=== PATIENT | male | born 1960 | race Caucasian/White ===

== ENCOUNTER 2017-10-30 16:50 | Inpatient (IN) | payer SELFPAY ==
[2017-10-30] MEDS ORDERED: ALBUTEROL 2.5 MG/3 ML NEB SOL IH PRN (18:11)
[2017-10-30 18:13] LABS: Absolute Lymphocytes (CBC) 0.4 K/uL (0.7-4.9); Absolute Monocytes 0.5 K/uL (0.1-1.3); Absolute Neutrophil 11.8 K/uL (1.8-8.0); Basophils % 0.2 % (0-1.3); Hematocrit 34.3 % (39.6-49.0); Lymphocytes % 3.5 % (15.3-44.8); MCH 33.6 pg (27.0-35.0); MCV 93.4 fL (80-100); MPV 9.6 fL (7.6-11.3); Monocytes % 3.9 % (3.3-12.3); RBC Red Blood Cell Count 3.67 M/uL (4.33-5.43)
[2017-10-30] MEDS: NA CHLORIDE 0.9% 1,000 ML IV SCH (18:58)
[2017-10-30] MEDS ORDERED: POLYETHYL GLY 3350 17 GM/DOSE PO PRN (19:00)
[2017-10-30] MEDS ORDERED: ONDANSETRON 4 MG (ODT) TAB PO PRN (19:00)
[2017-10-30] MEDS ORDERED: LOPERAMIDE HCL 2 MG CAPSULE PO PRN (19:00)
[2017-10-30] MEDS ORDERED: ONDANSETRON 4 MG/2 ML VIAL IV PRN (19:00)
[2017-10-30] MEDS ORDERED: DIPHENHYDRAMINE 25 MG TAB/CAP PO PRN (19:00)
[2017-10-30 19:04] LABS: Potassium 3.5 mEq/L (3.6-5.0)
[2017-10-30] MEDS: IPRATROPIUM BROM 0.5MG/2.5ML IH SCH (19:08)
[2017-10-30] MEDS: ALBUTEROL 2.5 MG/3 ML NEB SOL IH SCH (19:16)
[2017-10-30] MEDS: ENOXAPARIN 30 MG/0.3 ML SQ SCH (20:58)
[2017-10-30] MEDS: TRAMADOL HCL 50 MG TAB PO PRN (20:59)
[2017-10-30] MEDS: LORazepam 2 MG/ML VIAL IV SCH (20:59)
[2017-10-30] MEDS: FOLIC ACID 1 MG TABLET PO SCH (21:00)
[2017-10-30] MEDS ORDERED: PNEUMOCOCCAL VACCINE 0.5 ML IMVAC ONE (21:00)
[2017-10-30] MEDS: THIAMINE 200 MG/2 ML INJ IVP SCH (21:05)
--- NOTE | 2017-10-30 22:37 | EKG ---
Test Date: 2017-10-30 Test Time: 17:44:53 Clerk Rating: JEANNIE MEASUREMENT RESULTS: Intervals: Rate: 99 OK: 146 QRSD: 90 QT: 350 QTc: 449 Luke: P: 36 OK: 146 QRS: 73 T: 23 INTERPRETIVE STATEMENTS: Normal sinus rhythm Normal ECG No previous ECG available for comparison Electronically Signed On 10-30-17 22:37:41 CDT by Bobby Romo
[2017-10-31] MEDS: ACETAMINOPHEN 325 MG TABLET PO PRN ×2 (00:20→20:54)
[2017-10-31] MEDS: LORazepam 2 MG/ML VIAL IV SCH ×7 (01:00→20:55)
[2017-10-31] MEDS: IPRATROPIUM BROM 0.5MG/2.5ML IH SCH ×4 (01:06→19:28)
[2017-10-31] MEDS: ALBUTEROL 2.5 MG/3 ML NEB SOL IH SCH ×4 (01:17→19:28)
[2017-10-31] MEDS: NA CHLORIDE 0.9% 1,000 ML IV SCH ×3 (02:43→17:37)
[2017-10-31 03:12] LABS: Urine Appearance CLOUDY; Urine Bilirubin NEGATIVE (NEG); Urine Blood 2+ (NEG); Urine Color YELLOW; Urine Glucose NEGATIVE (NEG); Urine Protein 2+ (NEG); Urine Specific Gravity 1.015 (1.005-1.030); Urine pH 5.5 (5.0-7.0)
[2017-10-31 03:15] LABS: Urine Microscopic Reflex ORDER UMIC
[2017-10-31 03:24] LABS: Urine Amorphous Sediment 2+ /HPF (NONE SEEN); Urine Bacteria <20 /HPF (NONE SEEN); Urine Culture Reflex Order NOT NEEDED
[2017-10-31 05:04] LABS: Absolute Lymphocytes (CBC) 0.6 K/uL (0.7-4.9); Absolute Monocytes 0.5 K/uL (0.1-1.3); Absolute Neutrophil 7.4 K/uL (1.8-8.0); Basophils % 0.3 % (0-1.3); Hematocrit 29.9 % (39.6-49.0); Lymphocytes % 7.5 % (15.3-44.8); MCH 33.1 pg (27.0-35.0); MCV 93.7 fL (80-100); MPV 8.7 fL (7.6-11.3); Monocytes % 6.1 % (3.3-12.3); RBC Red Blood Cell Count 3.19 M/uL (4.33-5.43)
[2017-10-31 05:21] LABS: Magnesium 1.6 mg/dL (1.8-2.5)
[2017-10-31 05:25] LABS: Blood Morphology Comment NOT SEEN (NOT SEEN); Platelet Estimate ADEQ; Urine White Blood Cell Casts OK
[2017-10-31] MEDS ORDERED: POTASSIUM 25 MEQ EFFERV TAB PO ONE (05:41)
[2017-10-31] MEDS ORDERED: MAGNESIUM SULFATE 1 gm IVPB 1 GM/100 ML BAG IV ONE (05:42)
[2017-10-31] MEDS ORDERED: NA CHLORIDE 0.9% 1,000 ML IV SCH (07:00)
--- NOTE | 2017-10-31 08:18 | RAD REPORT ---
EXAM DESCRIPTION: RAD - Chest Pa And Lat (2 Views) - 10/31/2017 6:45 am CLINICAL HISTORY: Dehydration, shortness of breath, acute renal failure COMPARISON: October 30 TECHNIQUE: PA and lateral views of the chest were obtained. FINDINGS: The lungs are normal volume. Interstitial markings remain prominent. No vascular engorgeme nt. Heart size is normal and stable. No pleural effusion or pneumothorax seen. No acute bony findi ng noted. No aortic abnormality. IMPRESSION: Baseline chronic interstitial lung disease is noted and stable. No new or progressive cardiopulmonary finding.
--- NOTE | 2017-10-31 08:23 | RAD REPORT ---
EXAM DESCRIPTION: US - Abdomen Exam Complete - 10/31/2017 7:54 am CLINICAL HISTORY: Abdominal pain COMPARISON: CT imaging August 2017 FINDINGS: Gallbladder size is normal on this examination. No gallstone could be confirmed and no joe surable quantity of sludge. No wall thickening, mass or other acute gallbladder or pericholecystic fi nding. Common bile duct is normal with no common duct stone identified. Liver has a nodular contour and coarsened echogenicity. Is can be seen with diffuse hepatic parenchym al disease as well as fatty infiltration. At sonography no correlate could be seen for the increased attenuation in the anterior superior right lobe. No splenomegaly or focal splenic finding. The pancreas is grossly normal but partially obscured. No hydronephrosis or suspicious mass in either kidney. Cortical thickness and echogenicity are normal . Right kidney is a 12.0 x 5.9 x 5.6 cm. Left kidney is 11.6 x 6.1 x 6.3 cm. Aorta is normal is size. No ascites or bulky lymphadenopathy. IMPRESSION: No gallbladder or biliary tree abnormality identifiable on this study. Coarsened liver echogenicity and a slightly nodular capsular contour. This could be early cirrhosis o r nonspecific diffuse hepatic parenchymal disease. No sonographic correlate for the focal area of subtle increased liver attenuation seen on the CT stud y. This can be re-evaluated with CT or MRI imaging in 3-4 months. Probability of long-term significan ce is felt to be low. No acute renal finding. Pancreas is grossly normal but partially obscured. No suspicious pancreatic finding on an a pleural [address] study.
[2017-10-31] MEDS: ENOXAPARIN 30 MG/0.3 ML SQ SCH (09:05)
[2017-10-31] MEDS: THIAMINE 200 MG/2 ML INJ IVP SCH (09:05)
[2017-10-31] MEDS: FOLIC ACID 1 MG TABLET PO SCH (09:06)
[2017-10-31 11:10] LABS: Potassium 3.7 mEq/L (3.6-5.0)
[2017-10-31 11:15] LABS: A1c Component 0.43 mg/dL; Hemoglobin A1c 5.3 % (4-6.0)
[2017-10-31 11:19] LABS: Alcohol Serum/Plasma < 10 mg/dl
[2017-10-31 11:53] LABS: CKMB Creatine Kinase MB 4.7 ng/ml (0.3-4.0); Thyroid Stimulating Hormone 1.16 uIU/mL (0.34-5.60)
[2017-10-31 12:19] LABS: C-Reactive Protein 222.7 mg/L (<10.0)
[2017-10-31 19:36] LABS: Albumin 2.4 g/dL (3.2-5.5); Bilirubin Total 0.7 mg/dL (0.3-1.2); Protein, Total 5.3 g/dL (6.0-8.3)
--- NOTE | 2017-10-31 21:38 | P.PN ---
Subjective Date of Service: 10/31/17 Chief Complaint: BETTER TODAY THAN YESTERDAY Subjective: Improving HE IS BETTER, STILL SHAKY, BUT NOT WEAK, FEVER HAS IMPROVED. Review of Systems 10-point ROS is otherwise unremarkable General: Weakness, Malaise Neurological: Weakness, Other (COARSE TREMORS) Physical Examination - Vital Signs Temperature: 99.9 F Blood Pressure: 166/84 Pulse: 102 Respirations: 20 Pulse Ox (%): 99 - Physical Exam General: Alert, Mild distress, Other (TREMORS) HEENT: Atraumatic, PERRLA, EOMI Neck: Supple, JVD not distended Respiratory: Clear to auscultation bilaterally, Normal air movement Cardiovascular: Regular rate/rhythm, Normal S1 S2 Gastrointestinal: Normal bowel sounds, No tenderness Musculoskeletal: No tenderness Integumentary: No rashes Neurological: Normal speech, Normal tone, Normal affect Lymphatics: No axilla or inguinal lymphadenopathy - Studies Laboratory Data (last 24 hrs) 10/31/17 18:37: Sodium 120 L, Potassium 4.0, BUN 49 H, Creatinine 2.70 H, Glucose 108, Total Bilirubin 0.7, AST 23, ALT 12, Alkaline Phosphatase 63 10/31/17 11:54: Potassium 3.8 10/31/17 10:09: Troponin I < 0.03 10/31/17 10:00: Sodium 121 L, Potassium 3.7, BUN 52 H, Creatinine 2.77 H, Glucose 107 10/31/17 04:39: Sodium 120 L, Potassium 3.0 L, BUN 50 H, Creatinine 3.00 H, Glucose 125 H, Magnesium 1.6 L 10/31/17 04:39: WBC 8.6 D, Hgb 10.5 L, Hct 29.9 L, Plt Count 147 L D Medications List Reviewed: Yes Assessment And Plan - Current Problems (Diagnosis) (1) Positive blood culture Current Visit: Yes Status: Acute Plan: FROM UTI , PYELONEPHRITIS CS PENDING CIPRO SHOULD WORK FOR PYELONEPHRITIS. (2) Cirrhosis Current Visit: Yes Status: Chronic Plan: HEAVY ALCOHOL USE JUST QUIT I HAD ADVISED MANY TIMES BEFORE THIAMINE, FOLATE (3) Acute renal failure Onset Date: 10/31/17 Current Visit: No Status: Acute Plan: PRERENAL MAINLY SHOULD IMPROVE WITH IV FLUIDS (4) Hyponatremia Onset Date: 10/31/17 Current Visit: No Status: Acute Plan: MAINLY FROM DEHYDRATION IV NS HAS IMPROVED NUMBERS ALREADY FROM 117 TO 120.
[2017-11-01] MEDS: ALBUTEROL 2.5 MG/3 ML NEB SOL IH SCH ×4 (01:37→19:39)
[2017-11-01] MEDS: IPRATROPIUM BROM 0.5MG/2.5ML IH SCH ×4 (01:37→19:39)
[2017-11-01] MEDS: LORazepam 2 MG/ML VIAL IV SCH ×6 (01:44→21:59)
[2017-11-01] MEDS: NA CHLORIDE 0.9% 1,000 ML IV SCH ×3 (01:44→16:43)
--- NOTE | 2017-11-01 01:49 | CON ---
Date of Consultation: 10/31/2017 Chief Complaint: Hyponatremia, hypoosmolality, acute kidney injury. History Of Present Illness: Acute kidney injury, nonoliguric, moderately severe , associated with hypovolemia. Hyponatremia was found when the patient had blood work done routinely. Sodium level was 120, potassium 4.0. BUN 49, creatinine 2.7, glucose 108. The patient was found to have hypomagnesemia. IV fluids with normal saline were started for hydration. Sodium level improved somewhat over the last 24 hours. The patient does not have confusion, and there is no history of seizure. The patient has history of heavy alcohol use and liver cirrhosis. He stated that he just quit drinking alcohol. There is history of fluid in the volume depletion. Sodium level improved somewhat from 117 to 120 with IV normal saline. The patient was found to have positive blood cultures and workup is pending in view of bacteremia. Abdominal ultrasound was done and it did not show hydronephrosis. The right kidney is 12.0 and left kidney 11.6 cm. Liver showed nodule contour and increased echogenicity, diffuse hepatic parenchymal disease present with fatty infiltration. Gallbladder site is normal on examination. No gallstones. Review of Systems: Constitutional: The patient is complaining of generalized weakness. Denies fever, chills. Eyes: Denies vision changes. Ears, Nose, Mouth, and Throat: Denies sore throat or earache. Respiratory: Denies PND or orthopnea. Cardiovascular: Denies chest pain or palpitation. Denies syncope. GI: Denies nausea or vomiting. : Denies dysuria, hematuria. Denies history of kidney stones. All other systems reviewed and all are negative. Past Medical History: Hypertension, liver cirrhosis, heavy alcohol intake, COPD , history of bronchitis, GERD, chronic pain, osteoarthritis. Social History: Heavy alcohol use. Denies illicit drugs. Denies tobacco. Family History: No kidney disease in the family. Physical Examination: General: The patient is awake, alert. Eyes: Anicteric sclerae. EOMI. Ears, Nose, Mouth, and Throat: Oral mucosa moist. No pallor. Neck: Supple. No JVD. No bruits. Lungs: Clear to auscultation bilaterally. Heart: S1, S2. No pericardial friction rub. Abdomen: Soft, benign, nontender. No rebound. No guarding. Extremities: No edema. No clubbing Skin: warm and dry , no oozing Vital Signs: Blood pressure 166/84, heart rate 102, temperature 99.9, SpO2 of 99% on room air. Laboratory Data: Hemoglobin 12.3, WBC 12.8, platelet count 234. Sodium 119, potassium 3.5, chloride 84. creatinine 2.94, calcium 8.1. Creatinine kinase 170, calcium 8.1, magnesium 1.6. Urinalysis; specific gravity 1.015, pH 5.5, nitrites negative, bilirubin negative, leukocyte esterase 2+, rbc's from 5-10, wbc's 10-20. Salicylates less than 4, acetaminophen less than 10. Alcohol less than 10. Impression: 1. Acute kidney injury, nonoliguric, moderately severe with volume depletion. There is associated hyponatremia. Continue normal saline for hydration and start p.o. fluid restriction to prevent excessive hypotonic fluid intake. The patient will continue normal saline for hydration to correct hypovolemia and hyponatremia as well as to treat acute kidney injury. 2. Hypertension. Continue blood pressure medication. Avoid SHANE inhibitor. The patient may be a candidate to continue beta joselyn in view of history of alcohol intake. 3. Continue thiamine and advance p.o. intake as tolerated. 4. In view of hyponatremia,, TSH was evaluated and cortisol level was checked to rule out hypothyroid and rule out adrenal insufficiency. EDUARDO/CANDIE Voice ID: [id number] Report ID: [id number] SINA
[2017-11-01 05:24] LABS: Absolute Lymphocytes (CBC) 0.6 K/uL (0.7-4.9); Absolute Monocytes 0.4 K/uL (0.1-1.3); Absolute Neutrophil 8.3 K/uL (1.8-8.0); Basophils % 0.4 % (0-1.3); Eosinophils % 0.1 % (0-4.4); Hematocrit 34.8 % (39.6-49.0); Lymphocytes % 6.5 % (15.3-44.8); MCH 32.8 pg (27.0-35.0); MCV 94.6 fL (80-100); MPV 8.5 fL (7.6-11.3); Monocytes % 4.6 % (3.3-12.3); RBC Red Blood Cell Count 3.68 M/uL (4.33-5.43)
[2017-11-01 05:49] LABS: Potassium 3.7 mEq/L (3.6-5.0)
[2017-11-01] MEDS ORDERED: POTASSIUM CL SA 10 MEQ TAB PO ONE (07:41)
[2017-11-01] MEDS ORDERED: POTASSIUM 25 MEQ EFFERV TAB PO ONE (09:00)
[2017-11-01] MEDS: FOLIC ACID 1 MG TABLET PO SCH (10:04)
[2017-11-01] MEDS: THIAMINE 200 MG/2 ML INJ IVP SCH (10:05)
[2017-11-01] MEDS: ENOXAPARIN 30 MG/0.3 ML SQ SCH (10:05)
[2017-11-01 10:08] LABS: UR CREAT 79.8 mg/dL (20-370); Urine Protein/Creatinine Ratio 0.71 ratio (<0.15)
[2017-11-01 10:13] LABS: Urine Amorphous Sediment 1+ /HPF (NONE SEEN); Urine Bacteria <20 /HPF (NONE SEEN); Urine Culture Reflex Order NOT NEEDED
[2017-11-01 12:12] LABS: Barbiturates NEGATIVE (NEGATIVE); Benzodiazepines NEGATIVE (NEGATIVE); Cocaine NEGATIVE (NEGATIVE); METHAMPHETAM NEGATIVE (NEGATIVE); Opiates NEGATIVE (NEGATIVE); Phencyclidine NEGATIVE (NEGATIVE); THC Cannibis NEGATIVE (NEGATIVE)
[2017-11-01] MEDS ORDERED: NA CHLORIDE 0.9% 500 ML IV ONE (16:31)
[2017-11-01] MEDS: TRAMADOL HCL 50 MG TAB PO PRN (18:23)
[2017-11-01 18:28] LABS: Urine Appearance CLEAR; Urine Bilirubin NEGATIVE (NEG); Urine Blood 2+ (NEG); Urine Color YELLOW; Urine Glucose NEGATIVE (NEG); Urine Protein 1+ (NEG)
[2017-11-01 18:41] LABS: UR POTASSIUM 22.3 mEq/L (20-40)
[2017-11-01 19:16] LABS: Urine Microscopic Reflex ORDER UMIC
[2017-11-01 19:17] LABS: Urine Amorphous Sediment 1+ /HPF (NONE SEEN); Urine Bacteria 20-50 /HPF (NONE SEEN); Urine Culture Reflex Order REFLEXED
[2017-11-01] MEDS ORDERED: PROPRANOLOL HCL 10 MG TAB PO SCH (21:00)
--- NOTE | 2017-11-01 22:11 | PN ---
Subjective: The patient still confused, hallucinating. Physical Examination: Vital Signs: Blood pressure 186/93, pulse of 95, afebrile. The patient had urine output of 250. CHEST: Clear to auscultation. Heart: S1, S2. Regular. Abdomen: Soft, nontender. Extremities: No edema. Laboratory Data: WBC 9.4, H and H 12/34.8, and platelets 172. Sodium 122, potassium 3.7, bicarb 23, BUN 47, creatinine 2.3, calcium 7.4, and magnesium of 2. TSH within normal limit. Cortisol 33. Current Medications: The patient on include; 1.Ciprofloxacin 200 b.i.d. 2.Phenergan. 3.Lovenox. 4.Breathing treatment. 5.Folic acid. 6.Normal saline at 100 per hour. 7.Tramadol. Imaging: Abdominal ultrasound; normal size kidney, 12 x 11.6, no hydronephrosis. Assessment And Plan: 1.Acute kidney injury secondary to hepatorenal/pre renal, proteinuric, nonnephrotic. I am going to go ahead and send him for urine electrolytes. We will bolus the patient with 500 of normal saline. Then, we will maintain the patient on 100 per hour and we will follow up. 2.I am going to send him for urine electrolytes to differentiate between ATN secondary to prerenal o r hepatorenal. We will follow up the patient. 3.Hyponatremia secondary to depletion/secondary to cirrhosis. We will continue IV hydration. 4.Hypertension, uncontrolled. I will start the patient on Inderal and we will follow up the patient . KEENA Voice ID: [id number] Report ID: [id number]
[2017-11-02] MEDS: ALBUTEROL 2.5 MG/3 ML NEB SOL IH SCH (00:30)
[2017-11-02] MEDS: IPRATROPIUM BROM 0.5MG/2.5ML IH SCH (00:30)
[2017-11-02] MEDS ORDERED: FUROSEMIDE 20 MG/ 2ML VIAL IV ONE (00:57)
[2017-11-02] MEDS ORDERED: RSI MEDICATION KIT IV ONE (01:09)
[2017-11-02 01:19] LABS: Absolute Lymphocytes (CBC) 1.5 K/uL (0.7-4.9); Absolute Monocytes 0.7 K/uL (0.1-1.3); Absolute Neutrophil 12.4 K/uL (1.8-8.0); Basophils % 0.9 % (0-1.3); Eosinophils % 0.1 % (0-4.4); Hematocrit 40.1 % (39.6-49.0); MCH 32.7 pg (27.0-35.0); MCV 95.7 fL (80-100); MPV 8.4 fL (7.6-11.3); Monocytes % 5.1 % (3.3-12.3); RBC Red Blood Cell Count 4.19 M/uL (4.33-5.43)
[2017-11-02] MEDS ORDERED: NA CHLORIDE 0.9% 1,000 ML ONE (01:20)
[2017-11-02] MEDS ORDERED: LORazepam 2 MG/ML VIAL ONE (01:23)
[2017-11-02 01:27] LABS: Potassium 4.6 mEq/L (3.6-5.0)
[2017-11-02 02:03] LABS: Arterial Blood Carboxyhemoglob 0.4 % (0-1.5); Blood Gas Oxyhemoglobin 92.5 % (94-97); Blood O2 Saturation 93.4 % (92-98.5)
[2017-11-02 02:19] LABS: Protime INR 1.18
[2017-11-02] MEDS ORDERED: PIPER/TAZO/NS 3.375gm 3.375 GM/100 ML BAG IV SCH (02:47)
[2017-11-02] MEDS ORDERED: NA CHLORIDE 0.9% 100 ML ONE (02:49)
[2017-11-02] MEDS ORDERED: PIPERACIL/TAZO 3.375 GM VIAL IV ONE (02:49)
[2017-11-02] MEDS ORDERED: NOREPINEPHRINE 4 MG in D5W 250 ML IV PRN (02:51)
[2017-11-02] MEDS ORDERED: FENTANYL CITR 100 MCG/2 ML IV ONE (03:00)
[2017-11-02] MEDS ORDERED: NA CHLORIDE 0.9% 1,000 ML IV SCH (03:00)
[2017-11-02] MEDS ORDERED: NOREPINEPHRINE 4mg/D5W 250mL 4 MG/250 ML BAG IV ONE (03:12)
--- NOTE | 2017-11-02 03:21 | P.PN ---
Subjective Date of Service: 11/01/17 Chief Complaint: BETTER TODAY THAN YESTERDAY Subjective: New changes (NURSE TOLD ME ABOUT HIM GETTING MORE SHAKY THIS AM AND HALLUCINATING. I SAW HIM AT ABOUT 12.30 PM. NOTE DONE LATER.) HE IS BETTER, STILL SHAKY, BUT NOT WEAK, FEVER HAS IMPROVED. Review of Systems 10-point ROS is otherwise unremarkable General: Malaise Neurological: As per HPI (SEEING PEOPLE WHO ARE NOT THERE, SHAKINESS HAS IMPROVED AFTER HIGHER DOSE OF ATIVAN) Physical Examination - Vital Signs Temperature: 100.8 F Blood Pressure: 100/69 Pulse: 106 Respirations: 20 Pulse Ox (%): 99 - Physical Exam General: Alert, In no apparent distress HEENT: Atraumatic, PERRLA, EOMI Neck: Supple, JVD not distended Respiratory: Clear to auscultation bilaterally, Normal air movement Cardiovascular: Regular rate/rhythm, Normal S1 S2 Gastrointestinal: Normal bowel sounds, No tenderness Musculoskeletal: No tenderness Integumentary: No rashes Neurological: Normal speech, Normal strength at 5/5 x4 extr, Normal tone Lymphatics: No axilla or inguinal lymphadenopathy - Studies Laboratory Data (last 24 hrs) 11/02/17 01:05: PT 14.0 H, INR 1.18, APTT 28.6 11/02/17 01:05: Sodium 124 L, Potassium 4.6, BUN 35 H, Creatinine 1.76 H, Glucose 105 11/02/17 01:05: WBC 14.8 H D, Hgb 13.7, Hct 40.1 D, Plt Count 246 D 11/01/17 04:55: Sodium 122 L, Potassium 3.7, BUN 47 H, Creatinine 2.34 H, Glucose 73, Magnesium 2.0 11/01/17 04:55: WBC 9.4, Hgb 12.0 L, Hct 34.8 L D, Plt Count 172 Medications List Reviewed: Yes Assessment And Plan - Current Problems (Diagnosis) (1) Positive blood culture Current Visit: Yes Status: Acute Plan: FROM UTI , PYELONEPHRITIS CS PENDING CIPRO SHOULD WORK FOR PYELONEPHRITIS. (2) Cirrhosis Current Visit: Yes Status: Chronic Plan: HEAVY ALCOHOL USE JUST QUIT I HAD ADVISED MANY TIMES BEFORE THIAMINE, FOLATE (3) Acute renal failure Onset Date: 10/31/17 Current Visit: No Status: Acute Plan: PRERENAL MAINLY SHOULD IMPROVE WITH IV FLUIDS PRERENAL AZOTEMIA HAS IMPROVED WITH IV FLUIDS. DR KNUTSON IS ON THE CASE. (4) Hyponatremia Onset Date: 10/31/17 Current Visit: No Status: Acute Plan: MAINLY FROM DEHYDRATION IV NS HAS IMPROVED NUMBERS ALREADY FROM 117 TO 120. (5) Delirium tremens Current Visit: Yes Status: Acute Plan: HE RECENTLY HAD QUIT DRINKING AND HAS BEEN A HEAVY DRINKER. ATIVAN IV HAS HELPED CONTROL HIS TREMORS. HE IS ON IV THIAMAINE, FOLATE PO AND IV FLUIDS. SUPPORTIVE CARE FOR DT.
--- NOTE | 2017-11-02 03:28 | P.DS ---
Admission Date: 10/30/17 Discharge Date: 11/02/17 Disposition: TRANSFER TO [facility] Discharge Condition: CRITICAL Reason for Admission: NEW NEUROLOGICAL FINDINGS. - Problems (1) Positive blood culture Current Visit: Yes Status: Acute (2) Cirrhosis Current Visit: Yes Status: Chronic Qualifiers: Hepatic cirrhosis type: alcoholic cirrhosis (3) Acute renal failure Onset Date: 10/31/17 Current Visit: No Status: Acute (4) Hyponatremia Onset Date: 10/31/17 Current Visit: No Status: Acute (5) Delirium tremens Current Visit: Yes Status: Acute Hospital Course: MR. CABELLO WAS STABLE THIS AM WITH DT, SEPSIS, DEHYDRATION ALL IMPROVING. I HAD CALLED ABOUT 11.50 PM AND TALKED TO MARIVEL ABOUT HIS CONDITION. SHE SAID THAT HE WAS LOT LESS CONFUSED AND CO-OPERATIVE. LATER NURSE CALLED ME ABOUT 2.[address] BOWDEN WHO IS FIBER MACHINE TENDER DOCTOR HAD CALLED IN CODE STROKE HE SUSPECTED A STROKE WITH FLACCID WEAKNESS. HE WAS INTUBATED BY AIMEE DIAZ MD FOR AIRWAY PROTECTION AND SENT TO ICU. [facility], DR. CAT- HOSPITALIST AND DR. HUGHES, LOCAL NEUROLOGIST DISCUSSED THE CASE AND DECIDED NOT TO GIVE TPA THEY SUSPECTED IT MORE TO ME A SEIZURE THAN A STROKE. CT SCAN DOES NOT SHOW ANY BLEEDING AND STROKE. PATIENT WILL BE TRANSFERRED TO [facility] FOR A HIGHER LEVEL OF CARE. WE DON'T HAVE A NEUROLGIST FIBER MACHINE TENDER OR MRI MACHINE ON THE WEEKEND. HIS BP HAS BEEN LOW NORMAL AND MAY NEED LEVOPHED FOR SUPPORT. I CALLED AT 3 AM AGAIN AND TALKED TO WHO HAS BEEN IN ICU. PATIENT WILL BE SOON TRANSFERRED TO [facility] FOR FURTHER EVALUATION. Vital Signs/Physical Exam: Temp Pulse Resp BP Pulse Ox 100.8 F 106 H 20 100/69 99 11/02/17 03:20 11/02/17 03:20 11/02/17 03:20 11/02/17 03:20 11/02/17 03:20 Laboratory Data at Discharge: WBC 14.8 K/uL (4.3-10.9) H D 11/02/17 01:05 Hgb 13.7 g/dL (13.6-17.9) 11/02/17 01:05 Hct 40.1 % (39.6-49.0) D 11/02/17 01:05 Plt Count 246 K/uL (152-406) D 11/02/17 01:05 PT 14.0 SECONDS (9.5-12.5) H 11/02/17 01:05 INR 1.18 11/02/17 01:05 APTT 28.6 SECONDS (24.3-36.9) 11/02/17 01:05 Sodium 124 mEq/L (135-145) L 11/02/17 01:05 Potassium 4.6 mEq/L (3.6-5.0) 11/02/17 01:05 BUN 35 mg/dL (6-20) H 11/02/17 01:05 Creatinine 1.76 mg/dL (0.61-1.24) H 11/02/17 01:05 Glucose 105 mg/dL (65-120) 11/02/17 01:05 Magnesium 2.0 mg/dL (1.8-2.5) 11/01/17 04:55 Total Bilirubin 0.7 mg/dL (0.3-1.2) 10/31/17 18:37 AST 23 IU/L (10-42) 10/31/17 18:37 ALT 12 IU/L (10-60) 10/31/17 18:37 Alkaline Phosphatase 63 IU/L (42-121) 10/31/17 18:37 Troponin I < 0.03 ng/mL (<0.03) 10/31/17 10:09 Home Medications: Cefuroxime [Ceftin] 250 mg PO BID 10/30/17 Cilostazol 50 mg PO DAILY 10/30/17 Omeprazole [Prilosec] 40 mg PO DAILY 10/30/17 Tadalafil 6 mg PO DAILY 10/30/17 Tramadol HCl [Ultram] 50 mg PO DAILYPRN PRN 10/30/17
[2017-11-02] MEDS ORDERED: FENTANYL CITR 100 MCG/2 ML ONE (03:37)
[2017-11-02] MEDS ORDERED: ROCURONIUM 50 MG/5 ML VIAL IV STA (03:43)
[2017-11-02] MEDS ORDERED: ROCURONIUM 50 MG/5 ML VIAL IV ONE ×2 (03:45→03:46)
[2017-11-02] MEDS ORDERED: ETOMIDATE 20 MG/10 ML VIAL IV ONE (03:54)
[2017-11-02] MEDS ORDERED: SUCCINYLCHOLINE 20 MG/ML (10 ML) IV ONE (03:54)
--- NOTE | 2017-11-02 10:14 | RAD REPORT ---
EXAM DESCRIPTION: RAD - Chest Single View - 11/02/2017 1:57 am CLINICAL HISTORY: Chest pain, CVA COMPARISON: 10/31/2017 FINDINGS: Portable technique limits examination quality. Bilateral pulmonary opacities are present likely representing pulmonary edema or pneumonia. The heart is normal in size. Tip of the endotracheal tube is above the brian. Enteric tube descends in the st omach.
--- NOTE | 2017-11-02 10:15 | RAD REPORT ---
EXAM DESCRIPTION: CT - Ct Stroke Brain Wo Cont - 11/02/2017 4:24 am CLINICAL HISTORY: CVA COMPARISON: None. TECHNIQUE: All CT scans are performed using dose optimization technique as appropriate and may inclu de automated exposure control or mA/KV adjustment according to patient size. FINDINGS: No intracranial hemorrhage, hydrocephalus or extra-axial fluid collection.No areas of brai n edema or evidence of midline shift. The paranasal sinuses and mastoids are clear. The calvarium is intact. IMPRESSION: No acute intracranial abnormality.
[2017-11-02 15:33] LABS: HIV 1/2 Antibody Diff Not indicated.; HIV AG/AB 4TH GEN Non-reactive (Non-reactive)
[2017-11-03 00:58] LABS: Albumin, (SPE) 2.6 g/dL (3.8-4.8); Alpha-1-Globulins 0.6 g/dL (0.2-0.3); Alpha-2-Globulins 0.9 g/dL (0.5-0.9); Gamma Globulins 0.7 g/dL (0.8-1.7); INTERPRETATION Consistent with
[2017-11-04 03:29] LABS: HBsAG Nonreactive (Nonreactive); Hepatitis A IgM Antibody Nonreactive
[2017-11-04 18:00] LABS: P-ANCA Anti-Myeloperoxidase Ab <1.0 AI (<1.0)
== END 2017-11-02 03:55 | disposition short-term general hospital (02) | DRG 872 ==
LOC: 2ND 16:55 → OBSVTOIN 16:55 → 2ND 11-01 18:09 → 3RD-ICU 11-02 01:38
PROVIDERS: ADMIT Internal Medicine; ATTEND Internal Medicine
PROC: 0BH17EZ Insertion of Endotracheal Airway into Trachea, Via Natural or Artificial Opening (ICD-10-PCS; principal; 2017-11-02)
PROC: 5A1935Z Respiratory Ventilation, Less than 24 Consecutive Hours (ICD-10-PCS; 2017-11-02)
DX: A41.9 Sepsis, unspecified organism (principal); N17.9 Acute kidney failure, unspecified; F10.231 Alcohol dependence with withdrawal delirium; E87.1 Hypo-osmolality and hyponatremia; N12 Tubulo-interstitial nephritis, not specified as acute or chronic; E86.0 Dehydration; R29.728 NIHSS score 28; E83.42 Hypomagnesemia; K70.30 Alcoholic cirrhosis of liver without ascites; F10.11 Alcohol abuse, in remission; I10 Essential (primary) hypertension; J44.9 Chronic obstructive pulmonary disease, unspecified; K21.9 Gastro-esophageal reflux disease without esophagitis; G89.29 Other chronic pain; R56.9 Unspecified convulsions
CPT/HCPCS: 36415; 70450; 71045; 71046; 76700; 80048; 80053; 80074; 80307; 80320; 80329; 81003; 81015; 82009; 82043; 82140; 82533; 82550; 82553; 82570; 82805; 82962; 83036; 83520; 83735; 83930; 83935; 84132; 84156; 84165; 84300; 84443; 84484; 85025; 85610; 85730; 86021; 86038; 86140; 87040; 87077; 87086; 87088; 87186; 87205; 87389; 90670; 93005; 94002; G0009; J0330; J0744; J1650; J1940; J2543; J3010; J3411; J3475; J7030